=== PATIENT | female | born 1955 | race Caucasian/White ===

== ENCOUNTER 2016-12-16 12:51 | Emergency (ER) | payer OTHER ==
[2016-12-16 13:11] VITALS: RESP 16
--- NOTE | 2016-12-16 13:23 | CPEKG ---
Heart Rate: 60 RR Interval: 1000 P-R Interval: 144 QRSD Interval: 94 QT Interval: 456 QTC Interval: 456 P [place]: -16 QRS [place]: 85 T Wave [place]: 32 EKG Severity - NORMAL ECG - EKG Impression: SINUS RHYTHM Electronically Signed By: Wayne King 16-Dec-2016 15:50:00
--- NOTE | 2016-12-16 13:51 | EDPHY ---
H & P Smoking Status: Never smoked Time Seen by Provider: 12/16/16 13:45 HPI/ROS: Chief complaint. Chest discomfort HPI. 61-year-old female presents to emergency department via EMS. She had central chest discomfort that lasted several minutes that she describes as "a bubble". There was no radiation through to her back. Then she realized that she could not move either arm and could not stand or walk because both legs and both arms were weak. No shortness of breath. No fever. She has had some cough. She then developed headache and had some alison pattern visual symptoms. She has had migraines apparently with alison pattern visual symptoms but has been without headache or chest discomfort. She has had no similar symptoms previously. Nausea without vomiting. She tells me she also had slow speech ROS Constitutional. no fever/chills, no weakness Eyes. Alison pattern at before her eyes ENT. no sore throat, no nasal drainage Cardiovascular. Chest discomfort Respiratory. no shortness of breath, no cough Abdominal. no abdominal pain, no nausea/vomiting, no diarrhea . no problems urinating MS. no calf pain/swelling, no neck/back pain, no joint pain Skin. no rash Lymph. no swollen glands Neuro. Both arm and leg weakness and she says slow speech. Headache (Wayne King) Past Medical/Surgical History: Migraines with aura but no headache (Wayne King) Social History: , nonsmoker, no alcohol (Wayne King) Physical Exam: General Appearance: Alert well-developed female mild distress vital signs are stable Eyes: Pupils equal and round no pallor or injection. ENT, Mouth: Mucous membranes are moist. Respiratory: There are no retractions, lungs are clear to auscultation. Cardiovascular: Regular rate and rhythm. Gastrointestinal: Abdomen is soft and nontender, no masses, bowel sounds normal. Neurological: Awake and alert, sensory and motor exams grossly normal. Speech is normal. Cranial nerves are normal. There is no pronator drift. Finger-to- nose and [id number] are intact bilaterally Skin: Warm and dry, no rashes. Musculoskeletal: Neck is supple nontender. Extremities symmetrical, full range of motion. Psychiatric: Patient is oriented X 3, there is no agitation. (Wayne King) Constitutional: Initial Vital Signs Temperature (C) 36.6 C 12/16/16 13:01 Heart Rate 69 12/16/16 13:01 Respiratory Rate 16 12/16/16 13:01 Blood Pressure 114/70 12/16/16 13:01 O2 Sat (%) 95 12/16/16 13:01 O2 Delivery Mode Room Air Allergies/Adverse Reactions: NSAIDS (Non-Steroidal Anti-Inflamma Allergy (Intermediate, Verified 12/04/12 17: 46) Home Medications: Medication Instructions Recorded Amoxicillin/Clavulanate Pot 875 mg PO BID 12/16/16 [Augmentin 875 MG TAB (*)] Calcium Carbonate [Calcium] 2,000 mg PO HS 12/16/16 Magnesium Oxide [Magnesium Oxide 400 mg PO HS 12/16/16 400 mg (*)] levOFLOXACIN [levAQUIN (*)] 750 mg PO DAILY 12/16/16 Medical Decision Making - Diagnostics EKG Interpretation: EKG interpreted by me shows normal sinus rhythm with normal interval and axis. Inverted P-wave in lead 3. No significant ST elevation or depression. No arrhythmia. The rate is 60 (Wayne King) Imaging Results: Imaging Impressions Head CT 12/16/16 14:25 Impression: Nothing acute identified. Results called to Dr. King. General information for patients regarding this examination can be found at [email or web address]. If you have questions or comments about this report, please contact me at (hospital) or [phone] (cell). Chest X-Ray 12/16/16 14:26 Impression: 1. Mucous plugging versus prominent vessel, periphery of the right upper lobe. 2. Consider obtaining a routine PA and lateral chest to better evaluate the cardiothoracic equilibrium. Chest x-ray interpreted by me is normal (Wayne King) Procedures: IV normal saline, monitor (Wayne King) ED Course/Re-evaluation: Re-evaluation at 2:50 p.m.. Patient is stable. She and I discussed imaging and lab results. Treatment plan and need for admission and further evaluation. She expresses understanding and agreement. Patient has allergies to NSAIDs and tells me she can't take aspirin either. (Wayne King) For 3:[address] is negative. I discussed the case with Dr. Brennen Jameson who will admit to the PCU. 6:00 p.m. the patient was seen by Dr. Tere Jameson. The patient tells her that she has [facility]. Her 2nd troponin is more elevated. Tere spoke with [facility] who will accept her in transfer. 7:05 p.m. the patient is accepted to [facility] by Dr. Solo. Transfer paperwork completed. (Bright Moyer) Care Turn Over: Dr. Moyer at 3:00 p.m. (Wayne King) - Data Points Laboratory Results: Laboratory Results 12/16/16 13:20 12/16/16 13:20 12/16/16 12/16/16 12/16/16 15:50 13:20 13:20 WBC 4.58 10^3/uL 10^3/uL (3.80-9.50) RBC 4.98 10^6/uL 10^6/uL (4.18-5.33) Hgb 15.1 g/dL g/dL (12.6-16.3) Hct 45.4 % % (38.0-47.0) MCV 91.2 fL fL (81.5-99.8) MCH 30.3 pg pg (27.9-34.1) MCHC 33.3 g/dL g/dL (32.4-36.7) RDW 13.7 % % (11.5-15.2) Plt Count 225 10^3/uL 10^3/uL (150-400) MPV 9.8 fL fL (8.7-11.7) Neut % (Auto) 59.0 % % (39.3-74.2) Lymph % (Auto) 35.8 % % (15.0-45.0) Bennett % (Auto) 4.6 % % (4.5-13.0) Eos % (Auto) 0.2 % L % (0.6-7.6) Baso % (Auto) 0.2 % L % (0.3-1.7) Nucleat RBC Rel Count 0.0 % % (0.0-0.2) Absolute Neuts (auto) 2.70 10^3/uL 10^3/uL (1.70-6.50) Absolute Lymphs (auto) 1.64 10^3/uL 10^3/uL (1.00-3.00) Absolute Monos (auto) 0.21 10^3/uL L 10^3/uL (0.30-0.80) Absolute Eos (auto) 0.01 10^3/uL L 10^3/uL (0.03-0.40) Absolute Basos (auto) 0.01 10^3/uL L 10^3/uL (0.02-0.10) Absolute Nucleated RBC 0.00 10^3/uL 10^3/uL (0-0.01) Immature Gran % 0.2 % % (0.0-1.1) Immature Gran # 0.01 10^3/uL 10^3/uL (0.00-0.10) Sodium 143 mEq/L mEq/L (134-144) Potassium 4.2 mEq/L mEq/L (3.5-5.2) Chloride 109 mEq/L mEq/L (97-110) Carbon Dioxide 24 mEq/l mEq/l (22-31) Anion Gap 10 mEq/L mEq/L (8-16) BUN 14 mg/dL mg/dL (7-23) Creatinine 0.7 mg/dL mg/dL (0.6-1.0) Estimated GFR > 60 Glucose 85 mg/dL mg/dL (70-100) Calcium 9.0 mg/dL mg/dL (8.5-10.4) Troponin I 0.667 ng/mL H ng/mL 0.080 ng/mL H ng/mL (0-0.034) (0-0.034) Medications Given: Discontinued Medications Aspirin (Aspirin) 325 mg PO ONCE ONE Stop: 12/16/16 17:50 Last Admin: 12/16/16 18:06 Dose: Not Given Sodium Chloride (Ns) 500 mls @ 0 mls/hr IV ONCE ONE PRN Reason: As Directed Stop: 12/16/16 14:13 Last Admin: 12/16/16 14:16 Dose: 500 mls Departure - Departure Disposition: [facility] Inpatient Acute Clinical Impression: Chest pain Qualifiers: Chest pain type: unspecified Qualified Code(s): R07.9 - Chest pain, unspecified Condition: Fair Referrals: Patient,NotPresent [Unknown] - As per Instructions
[2016-12-16] MEDS ORDERED: NS 500 ML IV ONE (14:12)
[2016-12-16 14:25] LABS: % IMMATURE GRANULYOCYTES 0.2 % (0.0-1.1); ABSOLUTE IMMATURE GRANULOCYTES 0.01 10^3/uL (0.00-0.10); ADD DIFF? NO; ADD MORPH? NO; ADD SCAN? NO; ATYPICAL LYMPHOCYTE FLAG 10 (0-99); FRAGMENT RBC FLAG 0 (0-99); HEMATOCRIT 45.4 % (38.0-47.0); HEMOGLOBIN 15.1 g/dL (12.6-16.3); LEFT SHIFT FLG 0 (0-99); LIPEMIA HEMOLYSIS FLAG 80 (0-99); MEAN CELL HEMOGLOBIN 30.3 pg (27.9-34.1); MEAN CELL HEMOGLOBIN CONCENTR. 33.3 g/dL (32.4-36.7); MEAN CELL VOLUME 91.2 fL (81.5-99.8); MEAN PLATELET VOLUME 9.8 fL (8.7-11.7); PLATELET CLUMPS FLAG 40 (0-99); PLATELET COUNT 225 10^3/uL (150-400); RED BLOOD CELL COUNT 4.98 10^6/uL (4.18-5.33); RED CELL DISTRIBUTION WIDTH 13.7 % (11.5-15.2)
[2016-12-16 14:29] LABS: ANION GAP 10 mEq/L (8-16); CARBON DIOXIDE 24 mEq/l (22-31); CHLORIDE 109 mEq/L (97-110); CREATININE 0.7 mg/dL (0.6-1.0); GLOMERULAR FILTRATION RATE > 60; GLUCOSE 85 mg/dL (70-100); POTASSIUM 4.2 mEq/L (3.5-5.2); SODIUM 143 mEq/L (134-144)
[2016-12-16 17:38] VITALS: O2SAT 98
[2016-12-16 17:40] VITALS: BP 118/76
[2016-12-16] MEDS ORDERED: ASPIRIN 325 MG TAB PO ONE (17:49)
--- NOTE | 2016-12-16 18:02 | CPEKG ---
Heart Rate: 76 RR Interval: 789 P-R Interval: 136 QRSD Interval: 90 QT Interval: 400 QTC Interval: 450 P [place]: 18 QRS [place]: 119 T Wave [place]: 23 EKG Severity - ABNORMAL ECG - EKG Impression: SINUS RHYTHM EKG Impression: LEFT POSTERIOR FASCICULAR BLOCK Electronically Signed By: Vanessa Butler 16-Dec-2016 21:29:03
[2016-12-16 19:06] VITALS: PULSE 74; TEMP 97.7
== END 2016-12-16 19:17 | disposition short-term general hospital (02) ==
LOC: EDUNIT# → UNDOADMOB 16:16
DX: R07.9 Chest pain, unspecified (principal)